=== PATIENT | male | born 1995 | race African-American/Black ===

== ENCOUNTER 2017-10-24 12:50 | Emergency (ER) | payer OTHER, SELFPAY ==
[2017-10-24] MEDS ORDERED: Ondansetron PF 4 MG/2 ML Vial ONE (13:23)
[2017-10-24 13:58] LABS: #Basophils 0.1 thou/uL (0.0-0.2); #Eosinphils 0.5 thou/uL (0.0-0.7); #Lymphocytes 1.6 thou/uL (1.20-3.40); #Monocytes 0.4 thou/uL (0.11-0.59); #Neutrophils 2.9 thou/uL (1.40-6.50); %Eosinophils 9.5 % (0.0-10.0); %Lymphocytes 29.6 % (21.0-51.0); %Monocytes 6.9 % (0.0-10.0); Hemoglobin 15.5 g/dL (14.0-18.0); Mean Corpuscular HGB CONC 34.3 g/dL (32.0-36.0); Mean Corpuscular Hemoglobin 31.5 pg (27.0-31.0); Mean Platelet Volume 7.3 fL (7.4-10.4); Platelet Count 239 thou/uL (130-400); RBC Distribution Width 11.6 % (11.5-14.5); Red Blood Cell (RBC) Count 4.93 mill/uL (4.70-6.10); White Blood Cell (WBC) Count 5.4 thou/uL (4.8-10.8)
[2017-10-24 14:13] LABS: CKMB 0.6 ng/mL (0-6.6); Troponin I Less than 0.010 ng/mL (< 0.028)
[2017-10-24 14:16] LABS: ALT (SGPT) 10 U/L (8-55); AST (SGOT) 21 U/L (5-34); Albumin 4.3 g/dL (3.5-5.0); Alkaline Phosphatase 81 U/L (40-150); Anion Gap 11 mmol/L (10-20); BUN (Urea Nitrogen) 8 mg/dL (8.9-20.6); Bilirubin, Total 0.8 mg/dL (0.2-1.2); CK (CPK) 159 U/L (30-200); Calc. Creatinine Clearance 0 mL/min (70-130); Calcium 9.5 mg/dL (7.8-10.44); Carbon Dioxide 25 mmol/L (22-29); Chloride 107 mmol/L (98-107); Estimated GFR-MDRD Greater than 90; Globulin 2.6 g/dL (2.4-3.5); Glucose 94 mg/dL (70-105); Lipase Less than 4 U/L (8-78); Potassium 3.9 mmol/L (3.5-5.1); Protein, Total 6.9 g/dL (6.0-8.3); Sodium 139 mmol/L (136-145)
--- NOTE | 2017-10-24 14:19 | CT ---
CT CERVICAL SPINE: HISTORY: Neck pain after trauma. TECHNIQUE: Axial images are obtained with coronal and sagittal reconstructions. FINDINGS: CT images demonstrate cervical spine alignment to be within normal limits. No evidence of acute frac ture, subluxations, or bone lesions seen. Vertebral bodies are unremarkable. The posterior elements are intact. IMPRESSION: Unremarkable noncontrast enhanced CT images of the cervical spine. POS: [facility]
--- NOTE | 2017-10-24 14:19 | CT ---
CT BRTAIN WITHOUT CONTRAST: HISTORY: Injury, headache. FINDINGS: No evidence of infarct, hemorrhage, midline shift, or abnormal extraaxial fluid collections is seen. The ventricular size is normal and the basilar cisterns are patent. The bony calvarium is intact. The visualized paranasal sinuses and mastoid air cells are well aerated. IMPRESSION: No CT evidence of acute intracranial process. POS: [facility]
--- NOTE | 2017-10-24 14:22 | RAD ---
CHEST ONE VIEW: HISTORY: Syncope. COMPARISON: Chest radiograph from 04/03/2015. FINDINGS: The lungs are slightly hyperinflated. No pneumothorax. No focal air space consolidation or effusion . The cardiac silhouette and mediastinal contour is within normal limits. IMPRESSION: No acute intrathoracic abnormality. POS: [facility]
--- NOTE | 2017-10-24 14:24 | RAD ---
PELVIS ONE VIEW: History: Syncope. Injury. Trauma. Comparison: None. FINDINGS: No displaced fracture or malalignment. SI joints and pubic symphysis are unremarkable. Soft tissues are unremarkable. IMPRESSION: No acute fracture or malalignment. POS: [facility]
[2017-10-24 14:42] LABS: Bilirubin Negative (Negative); Blood, Urine Negative (Negative); Clarity TURBID (Clear); Glucose, Urine (Dipstick) Negative (Negative); Leukocyte Moderate (Negative); Nitrite Negative (Negative); Protein, Urine (Dipstick) Negative (Neg-Trace); Specific Gravity, Urine 1.017 (1.002-1.036); Urobilinogen 0.2 mg/dL (0.2-1.0)
[2017-10-24 14:44] LABS: Bacteria/HPF None Seen HPF (None Seen); Hyaline Casts/LPF 0-3 HYALINE CAST LPF (0-3 Hyaline); Pathc Cast-AUWi Flag 0.13 (0-2.49); RBC/HPF 0-3 HPF (0-3); Squamous Epithelial 0-3 HPF (0-3); WBC/HPF 21-50 HPF (0-3)
[2017-10-24 14:50] LABS: Medtox Reader # READER 4; THC/Cannabinoid Screen Detected (NotDetected)
[2017-10-24 14:51] LABS: Amphetamine Not Detected (NotDetected); Barbiturates Screen Not Detected (NotDetected); Benzodiazepine Screen Detected (NotDetected); Cocaine Metabolite Screen Detected (NotDetected); Medtox Control Line Valid? VALID (VALID); Methadone Not Detected (NotDetected); Methamphetamine Not Detected (NotDetected); Opiate Screen Not Detected (NotDetected); Oxycodone Screen Not Detected (NotDetected); Phencyclidine (PCP) Not Detected (NotDetected); Tricyclic Screen Not Detected (NotDetected)
[2017-10-24 15:27] LABS: Acetaminophen Less than 6.0 mcg/mL (10.0-30.0); Alcohol Less than 10 mg/dL (Less than 10); Salicylate Less than 8.0 mg/dL (15.0-30.0)
--- NOTE | 2017-10-28 13:14 | EKG ---
Test Reason : Blood Pressure : / mmHG Vent. Rate : 070 BPM Atrial Rate : 070 BPM P-R Int : 116 ms QRS Dur : 090 ms QT Int : 348 ms P-R-T Axes : 262 056 061 degrees QTc Int : 375 ms Unusual P axis and short VA, probable junctional rhythm Abnormal ECG Confirmed by BRAXTON ABBASI, ANDI ([id number]), editor greeting card CHRISS QURESHI ([id number]) on 10/28/2017 1:14:23 PM Referred By: Confirmed By:ANDI LIMON MD
--- NOTE | 2017-10-28 15:34 | EKG ---
Test Reason : SYNCOPE Blood Pressure : / mmHG Vent. Rate : 061 BPM Atrial Rate : 061 BPM P-R Int : 122 ms QRS Dur : 084 ms QT Int : 414 ms P-R-T Axes : 000 057 049 degrees QTc Int : 416 ms Normal sinus rhythm Normal ECG Confirmed by ERNST CELESTIN ([id number]), newspaper editor managing CHRISS QURESHI ([id number]) on 10/28/2017 3:33:48 PM Referred By: Confirmed By:ERNST CELESTIN
== END 2017-10-24 15:54 | disposition home or self-care (01) ==
LOC: ERS 12:50
DX: S06.9X9A Unspecified intracranial injury with loss of consciousness of unspecified duration, initial encounter (principal); S00.83XA Contusion of other part of head, initial encounter; S70.02XA Contusion of left hip, initial encounter; F19.10 Other psychoactive substance abuse, uncomplicated; R55 Syncope and collapse; M54.2 Cervicalgia; E86.0 Dehydration; F90.9 Attention-deficit hyperactivity disorder, unspecified type; F31.9 Bipolar disorder, unspecified; F17.210 Nicotine dependence, cigarettes, uncomplicated; W18.30XA Fall on same level, unspecified, initial encounter
CPT/HCPCS: 36415; 70450; 71045; 72125; 72170; 80053; 80306; 80307; 81003; 81015; 82550; 82553; 83605; 83690; 84146; 84443; 84484; 85025; 87086; 87804; 93005; J2270; J2405

== ENCOUNTER 2017-10-24 19:13 | Emergency (ER) | payer OTHER ==
[2017-10-24] MEDS ORDERED: Lorazepam 2 MG/ML VIAL ONE ×2 (19:18→19:31)
[2017-10-24 20:01] LABS: Alcohol Less than 10 mg/dL (Less than 10); Anion Gap 11 mmol/L (10-20); BUN (Urea Nitrogen) 7 mg/dL (8.9-20.6); Calc. Creatinine Clearance 0 mL/min (70-130); Calcium 9.2 mg/dL (7.8-10.44); Carbon Dioxide 24 mmol/L (22-29); Chloride 108 mmol/L (98-107); Estimated GFR-MDRD Greater than 90; Glucose 85 mg/dL (70-105); Potassium 3.5 mmol/L (3.5-5.1); Sodium 139 mmol/L (136-145)
== END 2017-10-24 22:12 | disposition home or self-care (01) ==
LOC: ERS 19:13
DX: R56.9 Unspecified convulsions (principal); F43.9 Reaction to severe stress, unspecified; F31.9 Bipolar disorder, unspecified; F90.9 Attention-deficit hyperactivity disorder, unspecified type; F17.210 Nicotine dependence, cigarettes, uncomplicated
CPT/HCPCS: 36415; 36416; 70450; 71045; 72125; 72170; 80053; 80306; 80307; 81003; 81015; 82550; 82553; 83605; 83690; 84146; 84443; 84484; 85025; 87086; 87804; 93005; 93010; 96361; 96374; 96375; J2060; J2270; J2405

== ENCOUNTER 2018-02-20 16:56 | Emergency (ER) | payer OTHER ==
[2018-02-20] MEDS ORDERED: Lorazepam 2 MG/ML VIAL ONE (17:47)
--- NOTE | 2018-02-20 18:19 | RAD ---
RADIOGRAPH CHEST 1 VIEW: 02/20/18 HISTORY: 22-year-old male with chest pain. FINDINGS: The visualized lung brown are clear. The cardiomediastinal silhouette and hilar shadows are normal. The lateral costophrenic angles are sharp. The osseous structures appear normal. There is no pneu mothorax. IMPRESSION: Negative. akin [] POS: [facility]
== END 2018-02-20 18:50 | disposition home or self-care (01) ==
LOC: ERS 16:56
DX: R56.9 Unspecified convulsions (principal); F31.9 Bipolar disorder, unspecified; F90.9 Attention-deficit hyperactivity disorder, unspecified type; F17.210 Nicotine dependence, cigarettes, uncomplicated
CPT/HCPCS: 36416; 71045; 93005; 96374; J2060

== ENCOUNTER 2025-06-18 20:57 | Emergency (ER) | payer OTHER, SELFPAY ==
[2025-06-18] MEDS ORDERED: HYDROcodone/Acetaminophen 5/325 mg Tablet ONE (21:56)
[2025-06-18] MEDS ORDERED: Ketorolac Tromethamine 30 MG (1 mL) VIAL ONE (21:56)
== END 2025-06-18 22:07 | disposition home or self-care (01) ==
LOC: ERS 20:57
DX: K04.7 Periapical abscess without sinus (principal); K08.89 Other specified disorders of teeth and supporting structures; F17.210 Nicotine dependence, cigarettes, uncomplicated
CPT/HCPCS: 96372; 99282; J1885

== ENCOUNTER 2025-06-21 07:50 | Emergency (ER) | payer SELFPAY | END 2025-06-21 08:30 | disposition home or self-care (01) | LOC: ERS 07:50 | DX: K04.7 Periapical abscess without sinus (principal); F17.210 Nicotine dependence, cigarettes, uncomplicated | CPT/HCPCS: 41800 ==